=== PATIENT | female | born 1960 | race Caucasian/White ===

== ENCOUNTER → 2019-07-01 13:53 | Outpatient (CLI) | payer BC, SELFPAY ==
--- NOTE | ~2019-07-01 | XR_ITS ---
XR hand LT min 3V, XR hand RT min 3V 07/01/2019 14:06 Indication: Bilateral hand pain Procedure: 3 views of each hand Comparison: No prior studies for comparison. Findings: Right hand: There is severe degenerative change of the first CMC joint with adjacent loose bodies. Th ere is moderate osteoarthritis of the first MCP and IP joints. There is mild-moderate polyarticular o steoarthritis of the interphalangeal joints. No acute fracture or traumatic malalignment. No focal so ft tissue abnormality. No radiopaque foreign bodies. Left hand: There is mild-moderate polyarticular osteoarthritis of the first CMC, MCP and interphalangeal joints. No significant soft tissue abnormality. No acute fracture or traumatic malalignment. No foreign bodi es. 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 Reviewed, dictated and finalized at location B. 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
== END ==
LOC: EXPTRAD 13:57
PROVIDERS: PCP Family Medicine; Visit Provider Family Medicine
DX: M19.041 Primary osteoarthritis, right hand (principal); M19.042 Primary osteoarthritis, left hand
CPT/HCPCS: 73130

== ENCOUNTER 2019-07-23 07:15 | Outpatient (CLI) | payer BC, SELFPAY ==
--- NOTE | ~2019-07-23 | US_ITS ---
EXAMINATION: US retroperitoneal duplex ltd EXAM DATE: 07/23/2019 07:53 INDICATION: Hypertension. TECHNIQUE: Multiple grayscale and Doppler images of the kidneys and renal arteries were obtained. T here is no prior study for comparison. FINDINGS: The aorta peak systolic velocity is 95 cm/s. The right renal artery peak systolic velocity is 110 cm/ s in the proximal segment, 137 cm/s in the mid segment, and 144 cm/s in the distal segment. The left renal artery peak systolic velocity is 81 cm/s in the proximal segment, 91 cm/s in the mid segment, a nd 73 cm/s in the distal segment. IMPRESSION: 1. Renal artery Doppler velocities within normal limits. Reviewed, dictated and finalized at location A. L FITTER
== END 2019-07-23 07:16 | disposition home or self-care (01) ==
LOC: ANHIMG 07:18
PROVIDERS: PCP Family Medicine
DX: I10 Essential (primary) hypertension (principal)
CPT/HCPCS: 93976

== ENCOUNTER 2021-03-13 07:55 | Outpatient (CLI) | payer BC, SELFPAY ==
--- NOTE | ~2021-03-13 | MM_ITS ---
EXAMINATION: MM screening sean BI w terra HISTORY: Screening TECHNIQUE: Craniocaudal and mediolateral oblique 3-D tomosynthesis images were obtained and synthetic 2-D images were generated. CAD analysis was submitted and interpreted. COMPARISON: No prior mammogram is available for comparison at this institution. BREAST PARENCHYMAL COMPOSITION: The breasts are heterogeneously dense, which may obscure small masses . FINDINGS: There is no evidence of suspicious mass, calcification, or architectural distortion to sugg est malignancy in either breast. There has been no suspicious interval change. IMPRESSION: 1. No mammographic evidence of malignancy. 2. Recommend routine screening mammography in one year. BI-RADS Category 1: Negative Reviewed, dictated and finalized at location A.
== END 2021-03-13 07:56 | disposition home or self-care (01) ==
LOC: ANHIMG 07:57
PROVIDERS: PCP Family Medicine; Visit Provider Family Medicine
DX: Z12.31 Encounter for screening mammogram for malignant neoplasm of breast (principal)
CPT/HCPCS: 77063; 77067

== ENCOUNTER 2021-08-06 15:24 | Outpatient (CLI) | payer BC, SELFPAY ==
[2021-08-06 16:15] LABS: Anion Gap 9 mmol/L (8-16); Blood Urea Nitrogen 13 mg/dL (7-17); Calcium 10.8 mg/dL (8.4-10.2); Carbon Dioxide 23 mmol/L (22-30); Chloride 97 mmol/L (98-107); Estimated Glomerular Filt Rate > 60; Glucose 90 mg/dL (65-110); Potassium 3.5 mmol/L (3.4-5.0); Sodium 129 mmol/L (137-145)
== END 2021-08-06 15:25 | disposition home or self-care (01) ==
LOC: ANHSURGERY 15:26
PROVIDERS: Anesthesiology; PCP Family Medicine; Visit Provider Urology
DX: N39.3 Stress incontinence (female) (male) (principal); Z79.899 Other long term (current) drug therapy; Z01.818 Encounter for other preprocedural examination
CPT/HCPCS: 36415; 80048; 87086

== ENCOUNTER → 2021-08-07 01:16 | Outpatient (CLI) | payer BC, SELFPAY ==
[2021-08-07 11:52] LABS: SARS-CoV-2 RNA PCR Negative
== END ==
PROVIDERS: PCP Family Medicine; Visit Provider Urology
DX: Z01.812 Encounter for preprocedural laboratory examination (principal); Z20.822 Contact with and (suspected) exposure to COVID-19
CPT/HCPCS: C9803; U0003; U0005

== ENCOUNTER 2021-08-10 01:43 | Day surgery (SDC) | payer BC, SELFPAY ==
[2021-08-01 15:35] VITALS: BMI 31.8
--- NOTE | 2021-08-01 15:53 | PC.NURSE ---
Report to the Outpatient Waiting Room, entrance under the green pavilion located off [facility], at time 7:00 on date 08/10/21. OR Time: 9:00. - You and your visitor will be asked a series of questions to screen for COVID 19 for your protection. - A mask is required within the hospital. One visitor will be allowed to accompany the patient into the hospital. Patients visitor will be instructed to remain with patient at all times or leave the building. We will allow the visitor to come back to the postoperative area when patient is ready. Preoperative COVID Testing Requirements: COVID TEST 08/07 AT 8:45 No COVID Test needed if: (proof is required; if not received patient will have Rapid Test prior to entry) - Patient has received COVID Vaccine at least 14 days prior to procedure date or - Patient has positive COVID test result within last 90 days of surgery date. COVID Test needed if above criteria is not met If not COVID vaccinated a COVID test must be conducted within 72 hours of surgery and patient is asked to isolate self from time of testing until procedure. You will go to the [employer] [facility] for your COVID testing. The [employer] [facility] site is located at the corner of [address] from [facility]. You will only be called if COVID results are positive and your surgeon may reschedule your elective surgery date. Patients may have clear liquids (water, carbonated beverages, clear teas, apple juice) until 3 hours prior to surgery (6:00) with a maximum of 20 ounces. - No food from midnight until time of surgery Take the following medications with a SIP of water the morning of surgery: FLECAINIDE Medications to discontinue per physician: VITAMINS/SUPPLEMENTS Date to take last dose: 08/06/21 Please no make-up, nail mongolian, hairspray, perfume, deodorant, or body powder the day of surgery. No jewelry (including any body piercings) or valuables the day of surgery, leave them at home. Please take a shower or bath the night before, or the morning of, surgery with an antibacterial soap. Wear comfortable, loose fitting clothing. - Jewelry must be removed prior to entering the operating room. Rings and piercings that are not removed may be cut off. - The hospital will not accept responsibility for valuables. - Please leave all valuables, including medications, at home the day of surgery. If you are going home after surgery, a licensed truck driver must drive you home. - NO public transportation without another adult. - We recommend that an adult stay with you for 24 hours following discharge. - We also recommend that you do not drive, make important decision, drink alcoholic beverages, or take any drugs that were not prescribed by your health care provider for at least 24 hours after your discharge time. Follow any additional instructions given to you from your surgeon. Telephone instructions given to SARAH PAIGE and asked if any additional questions and then verbalized understanding. Patient advised to call surgeon office or pre surgery nurse liaison [phone] if any additional questions.
--- NOTE | 2021-08-05 19:19 | P.HP_ITS ---
H&P: HPI History of Present Illness Date/Time: 08/05/21 19:19 61yo with REMA Chief Complaint: REMA Review of Systems Review of Systems: All systems reviewed & are unremarkable except as noted in HPI and below [facility] Past Medical History Medical History Acute non-recurrent maxillary sinusitis Bilateral hand pain BMI 31.0-31.9,adult Breast cancer screening by mammogram Colon cancer screening History of urinary frequency PSVT (paroxysmal supraventricular tachycardia) Tobacco use disorder, continuous Family History Family History Mother Family history of hypercholesterolemia Family history of congestive heart failure Father Hypertension Family history of malignant neoplasm of brain, Onset Age: 91 Grandparent Acute myocardial infarction, Onset Age: 80 Sibling Family history of malignant neoplasm of breast, Onset Age: 63 Social History Social History Years smoked: 14 Smoking status: Current every day smoker Tobacco type: cigarettes Alcohol intake: current Alcohol use details: 2/MONTH Substance use: former Substance use type: marijuana Spiritual care concerns: No Meds Home Medications and Allergies Home Medications Medication Instructions Recorded Confirmed Type flecainide 100 mg tablet 100 mg PO Q12H 06/01/19 08/01/21 History cyanocobalamin (vitamin B-12) 1,000 mcg PO DAILY 01/27/20 08/01/21 History 1,000 mcg tablet cholecalciferol (vitamin D3) 25 1,000 unit PO DAILY cap 10/12/20 08/01/21 History mcg (1,000 unit) capsule fluticasone propionate 50 1 spray NASAL BID #48 g 10/12/20 08/01/21 Rx mcg/actuation nasal spray,suspension hydrochlorothiazide 25 mg tablet 25 mg PO DAILY 07/11/21 08/01/21 History valsartan 80 mg tablet 80 mg PO DAILY 07/11/21 08/01/21 History Allergies Allergy/AdvReac Type Severity Reaction Status Date / Time codeine AdvReac Nightmare Verified 08/01/21 15:32 Exam Narrative: NAD A+Ox3 normal breathing + urethral mobility Assessment and Plan Assessment and plan (1) REMA (stress urinary incontinence, female): Code(s): N39.3 - Stress incontinence (female) (male) Status: Acute Assessment and Plan: urethral sling
--- NOTE | 2021-08-10 07:07 | WPDHPUPDATE1 ---
History and Physical Update Update Date/Time: 08/10/21 07:07 History and Physical has been reviewed, including an updated exam of the patient. There are NO changes in the patient's condition. Risks, benefits, and alternatives have been discussed and questions answered. Patient agrees to proceed with procedure.
[2021-08-10 07:30] VITALS: BP 127/73; PULSE 76; RESP 18; TEMP 36.8; O2SAT 98; BMI 31.6
[2021-08-10] MEDS: LACTATED RINGERS 1,000 ML 30 ML IV CONT (07:42)
[2021-08-10 08:01] LABS: Sodium 134 mmol/L (137-145)
--- NOTE | 2021-08-10 08:01 | WPDANESEPPF ---
Anes - Initial Pre Proc Eval Procedure: Operation Date: 08/10/21 09:00 Proposed Procedures p Urethral Sling - Jeffrey Laird MD Date/Time: 08/10/21 08:01 Surgeon: Jeffrey Laird MD Pre Op Diagnosis: stress incontinence Patient Data Age: 61 Gender: F Height: 1.57 m Weight: 78.6 kg Last Vital Signs Temp 36.8 C 08/10/21 07:30 Pulse 76 08/10/21 07:30 Resp 18 08/10/21 07:30 BP 127/73 08/10/21 07:30 Pulse Ox 98 08/10/21 07:30 Allergies Allergy/AdvReac Type Severity Reaction Status Date / Time codeine AdvReac Nightmare Verified 08/10/21 07:27 Home Medications Medication Instructions Recorded Confirmed Type flecainide 100 mg tablet 100 mg PO Q12H 06/01/19 08/10/21 History cyanocobalamin (vitamin B-12) 1,000 mcg PO DAILY 01/27/20 08/10/21 History 1,000 mcg tablet cholecalciferol (vitamin D3) 25 1,000 unit PO DAILY cap 10/12/20 08/10/21 History mcg (1,000 unit) capsule fluticasone propionate 50 1 spray NASAL BID #48 g 10/12/20 08/10/21 Rx mcg/actuation nasal spray,suspension hydrochlorothiazide 25 mg tablet 25 mg PO DAILY 07/11/21 08/10/21 History valsartan 80 mg tablet 80 mg PO DAILY 07/11/21 08/10/21 History Laboratory Tests 08/10/21 07:43 Sodium 134 mmol/L L mmol/L (137-145) Patient hx anesthesia problems: none Family hx anesthesia problems: none Results Review: All pre-operative results and documents have been reviewed as part of the pre-operative evaluation. [facility] Past Medical History Medical History Acute non-recurrent maxillary sinusitis Bilateral hand pain BMI 31.0-31.9,adult Breast cancer screening by mammogram Colon cancer screening History of urinary frequency PSVT (paroxysmal supraventricular tachycardia) Tobacco use disorder, continuous Surgical History Surgical History (Updated 08/10/21 @ 08:04 by Brian Knox MD) History of section Hx of tonsillectomy Family History Family History Mother Family history of hypercholesterolemia Family history of congestive heart failure Father Hypertension Family history of malignant neoplasm of brain, Onset Age: 91 Grandparent Acute myocardial infarction, Onset Age: 80 Sibling Family history of malignant neoplasm of breast, Onset Age: 63 Social History Social History Years smoked: 14 Smoking status: Light tobacco smoker ( 1 cigarette daily) Tobacco type: cigarettes Alcohol intake: current Alcohol use details: 2/MONTH Substance use: never Substance use type: does not use Living arrangements: alone Spiritual care concerns: No Anes - Eval Final PreProcedure Day of Procedure 08/10/21 08:01 Patient weight: obese Heart: regular rate and rhythm Lungs: clear to auscultation Airway: Mallampati scale class II and special considerations poor opening Neurological: alert and oriented Last oral intake: >/= 8 hours ASA classification: III Emergent: no Anesthetic plan: proceed Anesthesia type and monitoring: general GIVS and standard monitoring Results Review: All pre-operative results and documents have been reviewed as part of the pre-operative evaluation. Informed Consent: The patient's anesthetic plan and its attendant risks and benefits were discussed with the patient/family/POA. Questions were solicited and answers provided to the satisfaction of the patient/family/POA.
[2021-08-10] MEDS: ceFAZolin 2 GM/D5W 50 ML 2 GM/50 ML BAG IVPB (08:53)
[2021-08-10] MEDS: BUPIVACAINE/EPINEPHRINE 0.25% 10 ML VIAL INFILTRATE (09:04)
--- NOTE | 2021-08-10 09:18 | W.PM.PROC2 ---
Procedure Note - Detailed Date of Procedure 08/10/21 Pre-op Diagnosis stress incontinence Post-op Diagnosis same Procedure Performed mid urethral sling cystoscopy Surgeon Jeffrey Laird MD Indications This is a female with confirm stress urinary incontinence. She desires surgical correction. She understands the risks of bleeding, infection, injury to the urinary tract, vaginal mesh extrusion, urinary tract mesh erosion, obstructive voiding requiring a secondary procedure, hip and leg pain, dyspareunia, inability to improve overactive bladder symptoms. She agrees to proceed. Description of Procedure She was correctly identified. Informed consent obtained. She was brought the operating room. She was given appropriate anesthesia. She was given appropriate perioperative antibiotics. A time-out performed. I marked out the site of the inner thigh incisions. I anesthetized the skin and made those incisions. I anesthetized the anterior vaginal wall over the mid urethra. I made a 1 cm incision. I dissected out laterally taking great care not to injure the refilled vaginal wall. I passed the helical trocars. First on the left. Then on the right. I did this from the thigh incision towards the vaginal incision. The sling was connected to the trocars and brought out through the thigh incision. I tensioned the sling appropriately. I cut and the plastic sheaths. I then closed the incision with 2 0 Vicryl. On cystoscopy there is no tumors or surgical artifact. There was no surgical artifact in the urethra. I cut the excess sling material. Close incisions with glue. She was awakened and transferred to the PACU in stable condition. Implants Urethral sling Drains No Packing No Pathology none sent Complications No immediate complications Condition stable Disposition PACU
[2021-08-10 09:20] VITALS: BP 99/65; PULSE 76; RESP 16; O2SAT 97
[2021-08-10 09:50] VITALS: BP 125/68; PULSE 65
[2021-08-10 10:20] VITALS: BP 122/65; PULSE 74
[2021-08-10] MEDS: oxyCODONE HCL (*CRX) 5 MG TAB IR PO (10:24)
[2021-08-10 10:45] VITALS: BP 124/70; PULSE 66
== END 2021-08-10 10:57 | disposition home or self-care (01) ==
PROVIDERS: PCP Family Medicine; Visit Provider Urology
PROC: (CPT 57288; principal; 2021-08-10 09:00)
DX: N39.3 Stress incontinence (female) (male) (principal); I47.1 Supraventricular tachycardia; F17.210 Nicotine dependence, cigarettes, uncomplicated; E66.9 Obesity, unspecified; Z68.31 Body mass index [BMI] 31.0-31.9, adult
CPT/HCPCS: 57288; 36415; 84295; A9270; C1771; J0690; J2704; J3010; J7120

== ENCOUNTER 2021-12-24 13:53 | Emergency (ER) | payer BC, SELFPAY ==
--- NOTE | ~2021-12-24 | CT_ITS ---
EXAMINATION: CT lumbar spine wo con DATE: 12/24/2021 15:39 INDICATION: Severe back pain. Sudden onset. TECHNIQUE: Computed tomography (CT) of the lumbar spine was performed without intravenous contrast. T he dose-length product was 798.71 mGy-cm. Automated exposure control and iterative reconstruction pattie hnique were employed. COMPARISON: None FINDINGS: Vertebral body heights are maintained. There is disc narrowing at L3-4 and L5-S1. There is mild multilevel generative disc bulging at L2-3 through L5-S1, most prominent at L3-4. No significant central canal or neural foraminal narrowing. There are small sclerotic lesions of the pelvis, likely benign bone islands. No significant paraspinal soft tissue abnormality. No acute fracture or traumat ic malalignment. No evidence for spondylolisthesis. There is mild atherosclerosis of the aorta withou t aneurysm. IMPRESSION: 1. Mild lumbar spondylosis. 2: No acute abnormality of the lumbar spine. Reviewed, dictated and finalized at location A.
[2021-12-24 14:07] VITALS: BP 125/90; PULSE 82; RESP 14; TEMP 36.6; O2SAT 95
[2021-12-24 14:57] VITALS: BP 152/75; PULSE 73; RESP 18; TEMP 36.6; O2SAT 96
--- NOTE | 2021-12-24 15:15 | ED.BACK ---
HPI - Back Pain/Injury General Chief Complaint: Back Pain/Injury Stated Complaint: BACK PAIN Time Seen by Provider: 12/24/21 14:56 History of Present Illness HPI Narrative: 61-year-old female presents emergency room for lower back pain. She went to bed in her normal state of health last night. Woke up this morning has severe pain across the lower portion of her back to the point it was hard to move. Denies any traumas or injuries. She denies any pain radiating down her leg. She has no associated abdominal pain. She denies any history of recurrent or prior significant back injuries. She called her primary care physician and was told to come to the emergency room for evaluation. Related Data Home Medications Medication Instructions Recorded Confirmed flecainide 100 mg tablet 100 mg PO Q12H 06/01/19 10/22/21 cyanocobalamin (vitamin B-12) 1,000 mcg PO DAILY 01/27/20 10/22/21 1,000 mcg tablet cholecalciferol (vitamin D3) 25 1,000 unit PO DAILY 10/12/20 10/22/21 mcg (1,000 unit) capsule Allergies Allergy/AdvReac Type Severity Reaction Status Date / Time codeine AdvReac Nightmare Verified 12/24/21 15:07 Review of Systems Review of Systems: CONSTITUTIONAL: Denies fever, chills, or sweats. EYES: Denies visual changes, redness, or discharge. ENT: Denies rhinorrhea, congestion, sore throat, or otalgia. CARDIOVASCULAR: Denies chest pain, palpitations, or edema. RESPIRATORY: Denies cough or dyspnea. GASTROINTESTINAL: Denies abdominal pain, nausea, vomiting, or diarrhea. GENITOURINARY: Denies dysuria or hematuria. SKIN: Denies rash or itching. MUSCULOSKELETAL: Pain in the lower portion of the back. No radiation of pain. NEUROLOGIC: Denies headache, numbness, or weakness. PSYCHIATRIC: Denies anxiety or depression. [facility], [facility] Past Medical History Medical History Acute non-recurrent maxillary sinusitis Bilateral hand pain BMI 31.0-31.9,adult Breast cancer screening by mammogram Normal mammogram 03/13/2021. Colon cancer screening History of urinary frequency Obesity (BMI 30.0-34.9) PSVT (paroxysmal supraventricular tachycardia) Tobacco use disorder, continuous Surgical History Surgical History History of section Hx of tonsillectomy Family History Family History Mother Family history of hypercholesterolemia Family history of congestive heart failure Father Hypertension Family history of malignant neoplasm of brain, Onset Age: 91 Grandparent Acute myocardial infarction, Onset Age: 80 Sibling Family history of malignant neoplasm of breast, Onset Age: 63 Social History Social History Years smoked: 14 Smoking status: Light tobacco smoker Tobacco type: cigarettes ( 1 cigarette daily) Alcohol intake: current Alcohol use details: 2/MONTH Substance use: never Substance use type: does not use Spiritual care concerns: No Exam Narrative: APPEARANCE: Well appearing, no pain or distress, well-nourished. Head normocephalic and atraumatic. EYES: PERRLA/EOMI, conjunctivae very clear. NOSE: Normal with no drainage EARS:TMS clear Peggy Virgen, with good light reflex. THROAT: Pharynx clear, no exudate. NECK: Supple. No adenopathy, no masses. RESPIRATORY: Airway patent, respirations nonlabored. Clear to auscultation bilaterally, no rales, rhonchi, wheezing. CARDIOVASCULAR: Regular rate and rhythm without murmurs, rubs, or gallops. ABDOMINAL: Soft, nontender, nondistended, no hepatosplenomegaly Musculoskeletal: Positive straight leg raising on either side at about 30 to 45 degrees. Some mild tenderness to palpation of paraspinal muscles in the lower lumbar region. NEURO: Alert. Cranial nerves II through XII intact. Normal gait. Good coordination. Nonfoc
[2021-12-24] MEDS: KETOROLAC (*BKC) 60 MG/2 ML VIAL IM (15:46)
[2021-12-24] MEDS: diazePAM (*CRX) 5 MG TABLET PO (15:46)
[2021-12-24 15:49] VITALS: BP 149/69; PULSE 70; RESP 18; O2SAT 97
== END 2021-12-24 16:16 | disposition home or self-care (01) ==
LOC: ANHED 16:07
PROVIDERS: Emergency Provider Emergency Medicine; PCP Family Medicine
DX: S39.012A Strain of muscle, fascia and tendon of lower back, initial encounter (principal); E66.9 Obesity, unspecified; Z68.30 Body mass index [BMI] 30.0-30.9, adult; F17.210 Nicotine dependence, cigarettes, uncomplicated; M47.816 Spondylosis without myelopathy or radiculopathy, lumbar region; X58.XXXA Exposure to other specified factors, initial encounter
CPT/HCPCS: 72131; 96372; 99284; A9270; J1885

== ENCOUNTER 2022-05-14 13:32 | Emergency (ER) | payer BC, SELFPAY ==
--- NOTE | ~2022-05-14 | XR_ITS ---
XR shoulder LT min 2V 05/14/2022 14:58 Indication: Left shoulder pain status post fall. Limited range of motion. Procedure: 4 views left shoulder Comparison: No prior studies for comparison. Findings: There is a nondisplaced avulsion fracture of the greater tuberosity. The glenohumeral and a cromioclavicular joints are in anatomic alignment. No other fractures. No soft tissue abnormality. Impression: 1: Nondisplaced avulsion fracture of the greater tuberosity. Reviewed, dictated and finalized at location A. ALAI PLAYER Impression: 1: Nondisplaced avulsion fracture of the greater tuberosity.
[2022-05-14 13:40] VITALS: BP 150/93; PULSE 72; RESP 16; TEMP 36.2; O2SAT 100
--- NOTE | 2022-05-14 14:41 | ED.UPPEXIN ---
HPI - Extremity Injury (Upper) General Chief Complaint: Extremity Injury, Upper Stated Complaint: fall 1 week ago. left shoulder and hand pain Time Seen by Provider: 05/14/22 14:20 History of Present Illness HPI narrative: Pt fell 05/08 and landed on left shoulder and head. Pt did not lose consciousness. Pt complains of persistent left shoulder pain. Pt is able to abduct shoulder with some difficulty. Related Data Home Medications Medication Instructions Recorded Confirmed flecainide 100 mg tablet 100 mg PO Q12H 06/01/19 10/22/21 cyanocobalamin (vitamin B-12) 1,000 mcg PO DAILY 01/27/20 10/22/21 1,000 mcg tablet cholecalciferol (vitamin D3) 25 1,000 unit PO DAILY 10/12/20 10/22/21 mcg (1,000 unit) capsule Allergies Allergy/AdvReac Type Severity Reaction Status Date / Time codeine AdvReac Nightmare Verified 12/24/21 15:07 Review of Systems Review of Systems: All systems reviewed & are unremarkable except as noted in HPI and below PMFSH Past Medical History Medical History (Updated 05/14/22 @ 15:47 by Sammy Epstein III, DO) Acute low back pain without sciatica (~12/24/21) CT of the lumbar spine in the ER on 12/24/2021 with mild lumbar spondylosis. Acute non-recurrent maxillary sinusitis Bilateral hand pain BMI 31.0-31.9,adult Breast cancer screening by mammogram Normal mammogram 03/13/2021. Colon cancer screening History of urinary frequency Obesity (BMI 30.0-34.9) PSVT (paroxysmal supraventricular tachycardia) Tobacco use disorder, continuous Surgical History Surgical History History of section Hx of tonsillectomy Family History Family History Mother Family history of hypercholesterolemia Family history of congestive heart failure Father Hypertension Family history of malignant neoplasm of brain, Onset Age: 91 Grandparent Acute myocardial infarction, Onset Age: 80 Sibling Family history of malignant neoplasm of breast, Onset Age: 63 Social History Social History Years smoked: 14 Smoking status: Light tobacco smoker Tobacco type: cigarettes ( 1 cigarette daily) Alcohol intake: current Alcohol use details: 2/MONTH Substance use: never Substance use type: does not use Spiritual care concerns: No Exam Const: General: healthy appearing Nutritional Appearance: well nourished Orientation/consciousness: patient oriented x3 Limitations: no limitations HENMT: Head: normal to inspection Eyes: Conjunctivae: conjunctivae normal EOM: EOMs intact bilaterally Neck: Neck: normal visual inspection, no lymphadenopathy and no meningeal signs Chest: Chest palpation & inspection: normal inspection of the chest Resp: Effort & Inspection: normal respiratory effort Auscultation: clear to auscultation bilaterally Cardio: Rate: regular rate Rhythm: regular rhythm GI: GI Palp: Yes Soft to palpation Auscultation: normal bowel sounds Skin: General skin exam: normal color Rashes: no rashes Neuro: General: patient oriented x3, moves all extremities, no meningeal signs, no focal motor deficits and CN's II-XI intact bilaterally Speech: normal speech Extrem: Other: tender proximal humerus and left AC joint no obvious deformity. able to abduct with some difficulty. Psych: Mental Status: mental status grossly normal Affect: normal affect Attitude: cooperative Course Vital Signs Vital signs: Vital Signs Temperature 97.2 F L 05/14/22 13:40 Pulse Rate 72 05/14/22 13:40 Respiratory Rate 16 05/14/22 13:40 Blood Pressure 150/93 H 05/14/22 13:40 Pulse Oximetry 100 05/14/22 13:40 Oxygen Delivery Room Air 05/14/22 13:40 Temperature 97.2 F L 05/14/22 13:40 Pulse Rate 72 05/14/22 13:40 Respiratory Rate 16 05/14/22 13:40 Blood Pressure
== END 2022-05-14 16:01 | disposition home or self-care (01) ==
PROVIDERS: Emergency Provider Emergency Medicine; PCP Family Medicine
DX: S42.255A Nondisplaced fracture of greater tuberosity of left humerus, initial encounter for closed fracture (principal); W19.XXXA Unspecified fall, initial encounter
CPT/HCPCS: 73030; 99284; A4565

== ENCOUNTER 2023-04-28 08:30 | Outpatient (CLI) | payer BC, SELFPAY ==
--- NOTE | ~2023-04-28 | DEXA_ITS ---
Bone Density Report Name: SARAH PAIGE Age: 62 Sex: Female Ethnicity: White Date of : 1960 Indication: postmenopausal; screening for osteoporosis; prior fracture; Referring Provider: CHELSEA NEFF Study: Bone densitometry was performed. Exam Date: April 28, 2023 Accession number: [id number] Bone Density: Region BMD T-score Z-score Classification AP Spine(L1-L4) 0.927 -1.1 0.4 Osteopenia Femoral Neck (Left) 0.907 0.5 1.9 Normal Total Hip (Left) 1.050 0.9 1.9 Normal Femoral Neck (Right) 0.988 1.3 2.6 Normal Total Hip (Right) 1.087 1.2 2.2 Normal Total Hip Mean 1.068 1.1 2.1 Normal World Health Organization criteria for BMD impression classify patients as: Normal (T-score at or above -1.0), Osteopenia (T-score between -1.0 and -2.5), or Osteoporosis (T-score at or below -2.5). 10-year Fracture Risk: FRAX not reported because: Prior hip or vertebral fracture Clinical Information Provided by Patient: Have had a previous hip or vertebral fracture Has had a low trauma fracture Smokes Has used the following medications: Vitamin D, Calcium Patient maximum height was 62 Menopause Age: 58 No regular weight bearing exercise Onset of menses at age 14 Number of children 2 Impression: The patient has low bone mass, based on the Total Spine T-score. The patient has risk factors, including: smoking, previous fracture. Discussion: INCREASED RISK OF FRACTURE DUE TO HISTORY OF FRACTURE. The patient's previous fracture puts the patient at high risk of a future fracture. In untreated patients, the risk of osteoporotic fracture increases approximately two-fold for each 1.0 SD decrease in T-score. Low bone density is not the only risk factor for fracture; also consider factors such as patient's age, frailty or poor health, risk of falling, risk of injury, previous osteoporotic fracture, family history of osteoporosis, cigarette smoking, low body weight, etc. Not everyone with a low trauma fracture has osteoporosis; osteomalacia and other metabolic bone disorders should also be considered. Patients who have osteoporosis should be evaluated for specific diseases and conditions (secondary causes) that may cause or contribute to bone loss and fracture risk. National Osteoporosis Foundation (NOF) recommends pharmacologic intervention for patients with a prior hip or vertebral fracture regardless of BMD T-score. The patient should follow a healthful lifestyle (good nutrition with adequate calcium and vitamin D, and appropriate weight-bearing exercise). Follow-Up: Consider a repeat BMD and Vertebral Fracture Assessment (VFA) exam in 2 years or sooner if medically necessary, to reassess this patient's status. Reported by: [facility] on 04/28/2023 8:57:00 AM.
== END 2023-04-28 08:31 | disposition home or self-care (01) ==
LOC: ANHIMG 08:33
PROVIDERS: PCP Family Medicine; Visit Provider Nurse Practitioner Family
DX: N95.1 Menopausal and female climacteric states (principal); S42.253A Displaced fracture of greater tuberosity of unspecified humerus, initial encounter for closed fracture; X58.XXXA Exposure to other specified factors, initial encounter; M85.88 Other specified disorders of bone density and structure, other site
CPT/HCPCS: 77080

== ENCOUNTER 2023-05-14 10:14 | Outpatient (CLI) | payer BC, SELFPAY ==
--- NOTE | ~2023-05-14 | MM_ITS ---
EXAMINATION: MM screening sean BI w etrra HISTORY: Screening mammogram TECHNIQUE: Craniocaudal and mediolateral oblique 3-D tomosynthesis images were obtained and synthetic 2-D images were generated. CAD analysis was submitted and interpreted. COMPARISON: 03/13/2021 bilateral screening mammogram examination BREAST PARENCHYMAL COMPOSITION: The breasts are heterogeneously dense, which may obscure small masses . FINDINGS: There is no evidence of suspicious mass, calcification, or architectural distortion to sugg est malignancy in either breast. There has been no suspicious interval change. IMPRESSION: 1. No mammographic evidence of malignancy. 2. Recommend routine screening mammography in one year. BI-RADS Category 1: Negative Reviewed, dictated and finalized at location A. [employer] [employer]
== END 2023-05-14 10:15 | disposition home or self-care (01) ==
LOC: ANHIMG 10:16
PROVIDERS: PCP Family Medicine; Visit Provider Nurse Practitioner Family
DX: Z12.31 Encounter for screening mammogram for malignant neoplasm of breast (principal)
CPT/HCPCS: 77063; 77067